=== PATIENT | female | born 1965 ===

== ENCOUNTER 2016-11-15 17:29 | Inpatient (IN) | payer MEDICAID ==
[2016-11-15] MEDS ORDERED: Bacitracin 500 Units/gm Oint Foilpak UD ONE (18:53)
[2016-11-15 19:31] LABS: BASO # 0.1 K/uL (0.0-0.2); BASO % 1.2 % (0.0-2.0); EOS # 0.1 K/uL (0.0-0.7); EOS % 0.8 % (0.0-4.0); HEMATOCRIT 42.6 % (34.0-47.0); LYMPH # 3.6 K/uL (1.0-4.3); LYMPH % 30.8 % (20.0-40.0); MEAN CELL VOLUME 90.6 fL (81.0-99.0); MEAN CORPUSCULAR HEMOGLOBIN 30.3 pg (27.0-31.0); MEAN CORPUSCULAR HGB CONC 33.4 g/dL (33.0-37.0); MEAN PLATELET VOLUME 10.4 fL (7.2-11.7); MONO # 0.7 K/uL (0.0-0.8); MONO % 5.8 % (0.0-10.0); RED CELL DISTRIBUTION WIDTH 12.8 % (11.5-14.5); WHITE BLOOD COUNT 11.6 K/uL (4.8-10.8)
[2016-11-15 19:42] LABS: RBC URINE 1 /hpf (0-3); URINE BACTERIA RARE (<OCC); URINE BILIRUBIN NEGATIVE (NEGATIVE); URINE COLOR Yellow (YELLOW); URINE GLUCOSE (UA) NORMAL (Normal); URINE KETONE NEGATIVE (NEGATIVE); URINE LEUKOCYTE ESTERASE NEG Leu/uL (Negative); URINE PROTEIN NEGATIVE (NEGATIVE); URINE UROBILINOGEN NORMAL mg/dL (0.2-1.0); WBC URINE 2 /hpf (0-5)
[2016-11-15 19:44] LABS: ALB/GLOB RATIO 1.4 (1.0-2.1); ALCOHOL SERUM < 10 mg/dl (0-10); ALKALINE PHOSPHATASE 73 U/L (38-126); ALT/SGPT 31 U/L (9-52); AST/SGOT 16 U/L (14-36); BILIRUBIN,TOTAL 0.5 mg/dL (0.2-1.3); BLOOD UREA NITROGEN 8 mg/dL (7-17); CALCIUM 9.2 mg/dl (8.6-10.4); CARBON DIOXIDE 24 mmol/L (22-30); CHLORIDE 104 mmol/L (98-107); GFR AFRICAN-AMERICAN > 60; GLUCOSE,RANDOM 87 mg/dL (65-105); POTASSIUM 3.3 mmol/L (3.6-5.2); SODIUM 140 mmol/L (132-148); TOTAL PROTEIN 6.7 g/dL (6.3-8.3)
[2016-11-15 19:46] LABS: URINE BLOOD TRACE-INTACT (NEGATIVE)
--- NOTE | 2016-11-15 20:31 | C.PDOC ---
History Of Present Illness 51 year old female with a Hx of bipolar disorder brought in by family for bizarre cutting behavior. Family states patient cut herself multiple times on the bilateral forearms with a razor. Patient is currently on trazodone, seroquel , and klonopin; denies physical complaints at this time. Time Seen by Provider: 11/15/16 18:37 Chief Complaint (Nursing): Psychiatric Evaluation History Per: Patient History/Exam Limitations: no limitations Onset/Duration Of Symptoms: Days Current Symptoms Are (Timing): Still Present Suicide/Self Injury Attempted (Context): Other (Cut forearms) Involuntary Hold By: None Recent travel outside of the [place]: No Past Medical History Reviewed: Historical Data, Nursing Documentation, Vital Signs Vital Signs: Last Vital Signs Temp 97.7 F 11/15/16 20:51 Pulse 80 11/15/16 20:51 Resp 18 11/15/16 21:48 BP 118/80 11/15/16 20:51 Pulse Ox 98 11/15/16 22:08 - Medical History PMH: Bipolar Disorder, Depression, Diabetes Surgical History: No Surg Hx Family History: States: Unknown Family Hx - Social History Hx Alcohol Use: No Hx Substance Use: No Review Of Systems Skin: Positive for: Other (Cuts to bilateral forearms) Neurological: Negative for: Weakness, Numbness Physical Exam - Physical Exam Appears: Non-toxic, No Acute Distress Skin: Warm, Dry, Other (10-15 6cm lacerations to bilateral ventral forearms. No tendon or artery injury.) Head: Atraumatic, Normacephalic Oral Mucosa: Moist Chest: Symmetrical, No Tenderness Cardiovascular: Rhythm Regular, No Murmur Respiratory: Normal Breath Sounds, No Accessory Muscle Use, No Wheezing Extremity: Normal ROM (x4) Neurological/Psych: Oriented x3, Normal Speech, Normal Cognition, Normal Motor, Normal Sensation, Other (Normal function of bilateral hands) ED Course And Treatment - Laboratory Results Result Diagrams: 11/15/16 19:27 11/15/16 19:27 O2 Sat by Pulse Oximetry: 98 (Room air) Pulse Ox Interpretation: Normal Progress Note: Blood work and urinalysis ordered. Patient's wounds were evaluated and cleaned; bacitracin was applied and wounds were dressed. Crisis notified and patient will be admitted under Dr. Azul. Disposition Doctor Will See Patient In The: Hospital Counseled Patient/Family Regarding: Studies Performed, Diagnosis - Disposition Disposition: HOSPITALIZED Disposition Time: 20:30 Condition: GOOD - Clinical Impression Clinical Impression: Schizophrenia, Bipolar 1 disorder, Deliberate self-cutting - Scribe Statement The provider has reviewed the documentation as recorded by the Donteibsusanna Contreras All medical record entries made by the Donteibsusanna were at my direction and personally dictated by me. I have reviewed the chart and agree that the record accurately reflects my personal performance of the history, physical exam, medical decision making, and the department course for this patient. I have also personally directed, reviewed, and agree with the discharge instructions and disposition.
[2016-11-15] MEDS ORDERED: Potassium Chloride 20 mEq ER Tab PO STA (20:50)
--- NOTE | 2016-11-15 22:02 | PCM.BM ---
<BoboCindy perkins - Last Filed: 11/15/16 22:01> Treatment Plan Problems - Problems identified on initial assessmt Auditory Hallucinations Date Initiated: 11/15/16 Time Initiated: 22:01 Assessment reference: NA Status: Active Comment: cut AIDAN arms with razor/superficial cuts Treatment assets and liabiliti Patient Assests: adapts well, cooperative, self-reliant, ADL independent Patient Liabilities: poor support system, medical problems - Milieu Protocol Maintain good personal hygiene: daily Encourage regular showers, daily Remind patient to perform daily oral care Conduct patient checks and document Observation sheet: Q15 minutes Maintain personal safety: every shift Educate patient to report safety concerns to staff, every shift Monitor environment for contraband/sharps Medication safety: Monitor for expected outcome, potential side effects: every shift, Assess barriers to learning: every shift, Assess readiness for medication education: every shift <Cathleen Mchugh - Last Filed: 11/16/16 11:00> Family Contact Family involvement: Famliy/SO not involved - Goals for Treatment Patient goals for treatment: "I want to stop hearing voices." Discharge/Continuing Care - Education Needs Education Needs: Patient Medication, Patient Coping Skills - Discharge Discharge Criteria: Tolerates medication w/o severe side effects, Reduction of target symptoms Discharge to:: Home - Treatment Team Participation Discussed with Family/SO: No Was Patient/Family/SO present at Treatment Team Meeting: Yes <Yuri Chavira - Last Filed: 11/16/16 16:54> - Diagnosis (1) Bipolar 1 disorder Status: Acute Interventions: 11/16/16 16:54 * Assess/adjust medications daily and /or as needed * See patient on an individual basis 7x/week to assess symptoms of depression * Monitor for side effects & effectiveness of medications *
--- NOTE | 2016-11-16 14:08 | PCM.PSYCH ---
Initial Psychiatric Evaluation - Initial Psychiatric Evaluation Type of Admission: Voluntary Legal Status: Capacity Chief Complaint (in patient's own words): "I'm doing very bad" History of Present Illness and Precipitating Events: Patient is a 51 year old female, unemployed and currently on welfare, living alone in [place], who came to the [facility] from [place] on August 18 of this year. Patient states that her family lives in [place]. Patient is [place]-speaking and history is obtained with [place]-speaking pediatric social worker. Patient has a reported history of bipolar disorder and depression, for which she was treated in [place]. Patient states that she feels depressed and has suicidal thoughts, and tried to kill herself in the past but wasn't successful. She says that she hears voices that call her name and say that she shouldn't live anymore. She says that she came to the [facility] because a nitrogen operator in [place] told her that she would get better mental health care here, however she feels that it is worse than what she was receiving in [place]. She is stressed because she lives in low income housing, and is being pressured to provide documents from [place] that she states she has already provided. She also expresses worry that she is unable to sleep at night, and fears that one day her mind will go "blank " and she will follow through on her thoughts of committing suicide. Patient was prescribed Trazadone, Seroquel and Klonopin in [place]. She has seen a psychiatrist at the [facility] once and was also seen at another crisis center [place] the [place]. Patient denies substance or alcohol use. Past psychiatric history: bipolar disorder depression Drugs: denies ETOH: denies Tobacco: smokes cigarettes Past medical history: DM asthma "back problems" neuropathy Medications: Trazadone Klonopin Seroquel Family history: Uncle committed suicide Social history: Lives alone in [place] in low-income housing Originally from [place], came [place] the [place] on [place] Unemployed, currently on welfare Current Medications: Active Medications Generic Name Dose Route Start Last Admin Trade Name Freq PRN Reason Stop Dose Admin Albuterol 1 puff 11/16/16 10:52 Ventolin Hfa 90 Mcg/Actuation (8 G) INH RQ4 PRN SOB Escitalopram Oxalate 10 mg 11/16/16 11:00 Lexapro PO DAILY SILVIA Gabapentin 300 mg 11/16/16 11:00 Neurontin PO BID SILVIA Glipizide 5 mg 11/17/16 07:30 Glucotrol PO ACB SILVIA Hydroxyzine HCl 50 mg 11/16/16 14:00 Atarax PO QID SILVIA Metformin HCl 850 mg 11/16/16 10:00 11/16/16 10:28 Glucophage PO 850 mg BID SILVIA Administration Nicotine 1 patch 11/16/16 10:00 11/16/16 10:28 Nicoderm Cq TD 1 patch DAILY SILVIA Administration Quetiapine Fumarate 200 mg 11/15/16 22:00 11/15/16 21:34 Seroquel PO 200 mg HS SILVIA Administration Quetiapine Fumarate 100 mg 11/16/16 11:00 Seroquel PO DAILY SILVIA Tramadol HCl 25 mg 11/16/16 10:59 Ultram PO Q8H PRN Pain, severe (8-10) Trazodone HCl 100 mg 11/15/16 22:00 11/15/16 21:34 Desyrel PO 100 mg HS SILVIA Administration Past Psychiatric History - Past Psychiatric History Pertinent Medical Hx (Current Medical&Sleep Prob, Allergies): Allergies Allergy/AdvReac Type Severity Reaction Status Date / Time No Known Allergies Allergy Unverified 11/15/16 17:48 Celebrex 11/15/16 Clonazepam 11/15/16 Hydroxyzine HCl 11/15/16 Lamotrigine 11/15/16 MetFORMIN 11/15/16 Review of Systems - Neurological Neurological: UNREMARKABLE - Psychiatric Psychiatric: Abnormal Sleep Pattern, Anxiety, Auditory Hallucinations, Depression, Suicidal Ideation Mental Status Examination - Personal Presentation Personal Presentation: Looks stated age - Affect Affect: Constricted, Depressed - Motor Activity Motor Activity: Calm - Reliability in Providing Information Reliability in Providing Information: Fair - Speech Speech: Organized - Mood Mood: Depressed, Anxious - Formal Thought Process Formal Thought Process: Hallucinations - Hallucinations/Delusions Hallucinations: Auditory - Cognitive Functions Orientation: Person, Place, Situation, Time Sensorium: Alert Attention/Concentration: Attentive Abstract Thinking: Imbler Estimate of Intelligence: Average Judgement: Intact, as evidence by: Insight regarding need for hospitalization Memory: Recent intact, as evidence by: Ability to recall events of the day, Remote intact, as evidenced by: Abilit to recall sig. life events - Risk Risk: Suicidal, Self-mutilation - Strength & Assets Inventory Strength & Assets Inventory: Cooperative - Limitations Limitations: Living alone DSM 5 DX - DSM 5 DSM 5 Diagnosis: r/o bipolar disorder with psychotic features r/o major depressive disorder with psychotic features r/o schizoaffective disorder - Recommended/Plan of Treatment Treatment Recommendations and Plan of Treatment: Start lexapro and gabapentin Increase seroquel Attend groups and activities Individual therapy Psychoeducation and support Encourage compliance with meds and after care Refer to outpatient program Teach healthy lifestyle methods, i.e. diet, exercise, meditation Smoking cessation 33 min Projected ELOS: 6-7 days Prognosis: good with treatment Discharge Plan and Discharge Criteria: no symptoms of severe depression or severe psychotic features - Smoking Cessation Smoking Cessation Initiated: Yes
[2016-11-16 14:26] LABS: BLOOD UREA NITROGEN 9 mg/dL (7-17); CALCIUM 9.7 mg/dl (8.6-10.4); CARBON DIOXIDE 27 mmol/L (22-30); CHLORIDE 101 mmol/L (98-107); GFR AFRICAN-AMERICAN > 60; GLUCOSE,RANDOM 148 mg/dL (65-105); SODIUM 140 mmol/L (132-148)
[2016-11-16 14:53] LABS: THYROID STIMULATING HORMONE 0.48 mIU/L (0.46-4.68)
[2016-11-16] MEDS: Tramadol 25 mg PO PRN (19:28)
[2016-11-17] MEDS: Tramadol 25 mg PO PRN (11:22)
[2016-11-17] MEDS: Albuterol HFA 90 mcg/actuation (8 g) INH PRN (11:23)
--- NOTE | 2016-11-17 14:13 | PCM.PYCHPN ---
Psychiatric Progress Note - Psychiatric Progress Note Patient seen today, length of contact: 15 minutes Patient Chief Complaint: "I'm a little better than yesterday" Problems Identified/Issues Discussed: The patient was seen, chart reviewed, case discussed with staff. The patient is compliant with medications and reports no side effects. Patient states she is doing better than yesterday but reports that she still hasn't been able to sleep and requests a medication change. She states that she is depressed and has been having suicidal thoughts. She also expresses worry about what she did to her arms by cutting them. She remains concerned about her housing situation and requests a letter stating that she needs housing. Symptoms are improving but patient needs more time to stabilize. After care discussed, support and psychoeducation given. DSM 5 Symptoms Update: Major Depression, recurrent, severe with psychotic features AURELIO Medication Change: Yes (Seroquel increased to 300mg PO HS; added ambien 5mg PO HS) Medical Record Reviewed: Yes Mental Status Examination - Cognitive Function Orientation: Person, Place, Situation, Time Memory: Intact Attention: WNL Concentration: Poor Association: WNL Fund of Knowledge: WNL - Mood Mood: Depressed, Anxious - Affect Affect: Constricted, Depressed - Speech Speech: Appropriate - Formal Thought Process Formal Thought Process: Hallucinations - Suicidal Ideation Suicidal Ideation: Yes - Homicidal Ideation Homicidal Ideation: No Goal/Treatment Plan - Goal/Treatment Plan Need for Continued Stay: Severe depression anxiety, Discharge may exacerbated symptoms Progress Toward Problem(s) and Goals/Treatment Plan: Lexapro and gabapentin Increase seroquel Add Ambien Attend groups and activities Individual therapy Psychoeducation and support Encourage compliance with meds and after care Refer to outpatient program Teach healthy lifestyle methods, i.e. diet, exercise, meditation Smoking cessation
[2016-11-18] MEDS: Tramadol 25 mg PO PRN (12:14)
--- NOTE | 2016-11-18 13:00 | CP.PCM.CON ---
History of Present Illness - History of Present Illness History of Present Illness: Gen Sx: Dr Wesley Pt is a 51F brought in 2 days ago through ED by family after pt cut herself bilaterally on both forearms with a razor. Currently pt is admitted to 5E psychiatric unit. She is resting comfortably, both arms bandaged with Tefla and Kerlex. Pt states pain is minimal, just very itchy. There has been no bleeding since ER. Pt was not given Tetanus booster in the ED. Pt states it has been > 10 years since last booster. Review of Systems - Review of Systems All systems: reviewed and no additional remarkable complaints except (as per hpi ) Past Patient History - Past Social History Smoking Status: Heavy Smoker > 10 Cigarettes Daily - CARDIAC Hx Hypertension: No - PULMONARY Hx Emphysema: Yes Hx Tuberculosis: No - NEUROLOGICAL Hx Seizures: No - ENDOCRINE/METABOLIC Hx Diabetes Mellitus Type 2: Yes - HEMATOLOGICAL/ONCOLOGICAL Hx Human Immunodeficiency Virus (HIV): No - MUSCULOSKELETAL/RHEUMATOLOGICAL Hx Herniated Disk: Yes - GENITOURINARY/GYNECOLOGICAL Hx Sexually Transmitted Disorders: No - PSYCHIATRIC Hx Substance Use: No - ANESTHESIA Hx Anesthesia: No Meds Allergies/Adverse Reactions: Allergies Allergy/AdvReac Type Severity Reaction Status Date / Time No Known Allergies Allergy Unverified 11/15/16 17:48 - Medications Medications: Current Medications Albuterol (Ventolin Hfa 90 Mcg/Actuation (8 G)) 1 puff INH RQ4 PRN PRN Reason: SOB Last Admin: 11/17/16 11:23 Dose: 1 puff Bacitracin (Bacitracin) 1 ea TOP ONCE ONE Stop: 11/18/16 12:57 Escitalopram Oxalate (Lexapro) 10 mg PO DAILY SILVIA Last Admin: 11/18/16 09:47 Dose: 10 mg Gabapentin (Neurontin) 300 mg PO BID SILVIA Last Admin: 11/18/16 09:47 Dose: 300 mg Glipizide (Glucotrol) 5 mg PO ACB SILVIA Last Admin: 11/18/16 09:47 Dose: 5 mg Hydroxyzine HCl (Atarax) 50 mg PO Q6H PRN PRN Reason: Anxiety Last Admin: 11/17/16 17:32 Dose: 50 mg Metformin HCl (Glucophage) 850 mg PO BID SILVIA Last Admin: 11/18/16 09:47 Dose: 850 mg Nicotine (Nicoderm Cq) 1 patch TD DAILY [facility] Last Admin: 11/18/16 09:47 Dose: 1 patch Quetiapine Fumarate (Seroquel) 100 mg PO DAILY [facility] Last Admin: 11/18/16 09:47 Dose: 100 mg Quetiapine Fumarate (Seroquel) 300 mg PO HS [facility] Last Admin: 11/17/16 21:06 Dose: 300 mg Tetanus/Reduced Diphtheria/Acell Pertussis (Adacel) 0.5 ml IM .ONCE ONE Stop: 11/18/16 12:55 Tramadol HCl (Ultram) 25 mg PO Q8H PRN PRN Reason: Pain, severe (8-10) Last Admin: 11/18/16 12:14 Dose: 25 mg Trazodone HCl (Desyrel) 100 mg PO [facility] Last Admin: 11/17/16 21:08 Dose: 100 mg Zolpidem Tartrate (Ambien) 5 mg PO HS [facility] Last Admin: 11/17/16 21:28 Dose: 5 mg Physical Exam - Constitutional Appears: Non-toxic, No Acute Distress - Respiratory Exam Respiratory Exam: absent: Respiratory Distress - Extremities Exam Additional comments: bilateral numerous superficial incisions on forearm, no erythema, no purulent drainage. All incisions inspected and none penetrate past the sub-cutaneous fat. There is no vascular or fascial damage. Results - Vital Signs Recent Vital Signs: Last Vital Signs Temp 98.4 F 11/18/16 07:38 Pulse 85 11/18/16 07:38 Resp 20 11/18/16 07:38 BP 107/77 11/18/16 12:27 Pulse Ox 98 11/15/16 22:08 - Labs Result Diagrams: 11/15/16 19:27 11/16/16 13:52 Labs: Laboratory Results - last 24 hr 11/18/16 07:48 POC Glucose (mg/dL) 165 H Assessment & Plan - Assessment and Plan (Free Text) Assessment: 51F with multiple bilateral superficial forearms cuts Plan: no need for surgical intervention or stitches apply bacitracin to wounds daily, keep clean Tdap booster ordered - IM - can be given on 5E floor please reconsult if necessary d/w Dr Lupillo Caldwell, PGY3
[2016-11-18] MEDS ORDERED: Bacitracin 500 Units/gm Oint Foilpak UD TOP ONE (13:15)
--- NOTE | 2016-11-18 14:44 | PCM.PYCHPN ---
Psychiatric Progress Note - Psychiatric Progress Note Patient seen today, length of contact: 15 minutes Patient Chief Complaint: "I'm depressed" Problems Identified/Issues Discussed: The patient was seen, chart reviewed, case discussed with staff. The patient is compliant with medications and reports no side effects. Patient states that she is still depressed and slept a little better than she did yesterday. She had suicidal thoughts yesterday but not today. She is feeling anxious and expresses worry about the cuts on her arms. Discussed with patient that another doctor would be called to evaluate the cuts on her arms. Symptoms are improving but patient needs more time to stabilize. After care discussed, support and psychoeducation given. Medication Change: No Medical Record Reviewed: Yes Mental Status Examination - Cognitive Function Orientation: Person, Place, Situation, Time Memory: Intact Attention: WNL Concentration: Poor Association: WNL Fund of Knowledge: WNL - Mood Mood: Depressed, Anxious - Affect Affect: Constricted, Depressed - Speech Speech: Appropriate - Formal Thought Process Formal Thought Process: Hallucinations - Suicidal Ideation Suicidal Ideation: No - Homicidal Ideation Homicidal Ideation: No Goal/Treatment Plan - Goal/Treatment Plan Need for Continued Stay: Severe depression anxiety, Discharge may exacerbated symptoms Progress Toward Problem(s) and Goals/Treatment Plan: Lexapro and gabapentin Seroquel Shariien Attend groups and activities Individual therapy Psychoeducation and support Encourage compliance with meds and after care Refer to outpatient program Teach healthy lifestyle methods, i.e. diet, exercise, meditation Smoking cessation
[2016-11-19] MEDS: Bacitracin Ointment 30 GM TUBE TOP SCH (10:30)
--- NOTE | 2016-11-19 11:22 | PCM.PYCHPN ---
Psychiatric Progress Note - Psychiatric Progress Note Patient seen today, length of contact: 15 minutes Patient Chief Complaint: "I'm doing badly" Problems Identified/Issues Discussed: The patient was seen, chart reviewed, case discussed with staff. The patient is compliant with medications and reports no side effects. Patient is tearful at times and states she feels very anxious because she [place] this country alone and has nobody to help her. She says that her one friend is a asphalt roller person but she lives in [place] and can't come during the visiting hours of 7- 8pm. Discussed with patient that there is a tack maker at the hospital who can come speak to her. Patient reports that her heart is racing and she has cold sweats, and requests Ativan. Discussed with patient that medications like Ativan and Klonopin are addicting, and are meant for severe cases of anxiety and should be taken rarely. She expresses understanding of why she is being treated with other medications instead. Patient states that she does not wish to take Seroquel in the morning because she doesn't want to be drowsy during the day, but is having trouble sleeping for a full night (reports sleeping from 10pm to 4am last night) . Patient needs more time to stabilize. After care discussed, support and psychoeducation given. Medication Change: Yes (inc. Neurontin to 300mg PO TID; d/c AM Seroquel; inc. Lexapro to 15mg ) Medical Record Reviewed: Yes Mental Status Examination - Cognitive Function Orientation: Person, Place, Situation, Time Memory: Intact Attention: WNL Concentration: Poor Association: WNL Fund of Knowledge: WNL - Mood Mood: Depressed, Anxious - Affect Affect: Constricted, Depressed - Speech Speech: Appropriate - Formal Thought Process Formal Thought Process: Hallucinations - Suicidal Ideation Suicidal Ideation: No - Homicidal Ideation Homicidal Ideation: No Goal/Treatment Plan - Goal/Treatment Plan Need for Continued Stay: Severe depression anxiety, Discharge may exacerbated symptoms Progress Toward Problem(s) and Goals/Treatment Plan: Lexapro and gabapentin Seroquel Ambien Attend groups and activities Individual therapy Psychoeducation and support Encourage compliance with meds and after care Refer to outpatient program Teach healthy lifestyle methods, i.e. diet, exercise, meditation Smoking cessation
[2016-11-20] MEDS: Bacitracin Ointment 30 GM TUBE TOP SCH (09:25)
--- NOTE | 2016-11-20 11:39 | PCM.PYCHPN ---
Psychiatric Progress Note - Psychiatric Progress Note Patient seen today, length of contact: 15 minutes Patient Chief Complaint: "I was very anxious" Problems Identified/Issues Discussed: The patient was seen, chart reviewed, case discussed with staff. She had 145 pulse last night, likely benzo wdw She is anxious too. Ativan taper started No severe sxs and no SI, no seizures Today, she is calmer Support and psychoed given Risks of benzos explained but to no avail Medication Change: Yes (ativan taper, dc trazodone, decrease gabapentin) Medical Record Reviewed: Yes Mental Status Examination - Cognitive Function Orientation: Person, Place, Situation, Time Memory: Intact Attention: WNL Concentration: Poor Association: WNL Fund of Knowledge: WNL - Mood Mood: Depressed, Anxious - Affect Affect: Constricted, Depressed - Speech Speech: Appropriate - Formal Thought Process Formal Thought Process: Hallucinations - Suicidal Ideation Suicidal Ideation: No - Homicidal Ideation Homicidal Ideation: No Goal/Treatment Plan - Goal/Treatment Plan Need for Continued Stay: Severe depression anxiety, Discharge may exacerbated symptoms Progress Toward Problem(s) and Goals/Treatment Plan: Lexapro and gabapentin Seroquel Ambien prn Ativan taper over 4 days Attend groups and activities Individual therapy Psychoeducation and support Encourage compliance with meds and after care Refer to outpatient program Teach healthy lifestyle methods, i.e. diet, exercise, meditation Smoking cessation
[2016-11-20] MEDS: Tramadol 25 mg PO PRN (12:02)
[2016-11-21] MEDS: Bacitracin Ointment 30 GM TUBE TOP SCH (09:28)
--- NOTE | 2016-11-21 17:20 | PCM.PYCHPN ---
Psychiatric Progress Note - Psychiatric Progress Note Patient seen today, length of contact: 15 minutes Patient Chief Complaint: I'm feeling much better Problems Identified/Issues Discussed: Patient seen. Chart reviewed. Case discussed with the staff. Issues related to illness and treatment were discussed with the patient. Reported compliant with treatment with no adverse affects. Tolerating treatment very well. Patient was evaluated with the help of a Azeri speaking staff member. Reported feeling much better. Better sleep and mood. At the time of evaluation, patient was awake alert oriented 3, had no delusions , no auditory or visual hallucinations, no suicidal ideations or homicidal ideations. Medical Problems: None reported Diagnostic Results: Reviewed DSM 5 Symptoms Update: Improving Medication Change: No Medical Record Reviewed: Yes Consults ordered or reviewed: Reviewed Mental Status Examination - Cognitive Function Orientation: Person, Place, Situation, Time Memory: Intact Attention: WNL Concentration: WNL Association: WN Fund of Knowledge: [facility] Decription of patient's judgement and insights: Fair - Mood Mood: Depressed (Much less than before) - Affect Affect: Depressed - Speech Speech: Appropriate - Formal Thought Process Formal Thought Process: No Impairment Psychotic Thoughts and Behaviors: None - Suicidal Ideation Suicidal Ideation: No - Homicidal Ideation Homicidal Ideation: No Goal/Treatment Plan - Goal/Treatment Plan Need for Continued Stay: Remain at risks for inpatient hospitalization, Discharge may exacerbated symptoms, Severe functional impairment Progress Toward Problem(s) and Goals/Treatment Plan: Improvement with treatment Patient education Supportive therapy Continue treatment as before Patient will go to [facility] for follow-up care after discharge from the hospital. Estimated Date of D/C: 11/23/16 - Smoking Cessation Smoking Cessation Initiated: Yes
[2016-11-21] MEDS: Tramadol 25 mg PO PRN (18:18)
[2016-11-21] MEDS: Albuterol HFA 90 mcg/actuation (8 g) INH PRN (18:22)
[2016-11-22] MEDS: Bacitracin Ointment 30 GM TUBE TOP SCH (09:16)
[2016-11-22 15:47] VITALS: O2SAT 98
--- NOTE | 2016-11-22 21:30 | PCM.PYCHPN ---
Psychiatric Progress Note - Psychiatric Progress Note Patient seen today, length of contact: 15 minutes Patient Chief Complaint: I am feeling nervous because of discharge tomorrow Problems Identified/Issues Discussed: Patient seen. Chart reviewed. Case discussed with the staff. Issues related to illness and treatment were discussed with the patient. Reported compliant with treatment with no adverse affects. Tolerating treatment very well. Patient was evaluated with the help of a Greek speaking staff member. Reported feeling nervous because of discharge issues, wants to stay in the hospital for a few more days At the time of evaluation, patient was awake alert oriented 3, had no delusions , no auditory or visual hallucinations, no suicidal ideations or homicidal ideations. Medical Problems: None reported Diagnostic Results: Reviewed DSM 5 Symptoms Update: Improving with treatment Medication Change: No Medical Record Reviewed: Yes Consults ordered or reviewed: Reviewed Mental Status Examination - Cognitive Function Orientation: Person, Place, Situation, Time Memory: Intact Attention: WNL Concentration: WNL Association: WN Fund of Knowledge: [facility] Decription of patient's judgement and insights: Fair - Mood Mood: Anxious - Affect Affect: Other (Appropriate) - Speech Speech: Appropriate - Formal Thought Process Formal Thought Process: No Impairment Psychotic Thoughts and Behaviors: None - Suicidal Ideation Suicidal Ideation: No - Homicidal Ideation Homicidal Ideation: No Goal/Treatment Plan - Goal/Treatment Plan Need for Continued Stay: Remain at risks for inpatient hospitalization, Discharge may exacerbated symptoms, Severe functional impairment Progress Toward Problem(s) and Goals/Treatment Plan: Improvement with treatment Patient education Supportive therapy Continue treatment as before Patient will go to [facility] (formerly [facility]), for follow-up care after discharge from the hospital. Estimated Date of D/C: 11/23/16 - Smoking Cessation Smoking Cessation Initiated: Yes
[2016-11-22] MEDS: Tramadol 25 mg PO PRN (21:45)
[2016-11-23] MEDS: Bacitracin Ointment 30 GM TUBE TOP SCH (09:46)
--- NOTE | 2016-11-23 10:19 | PCM.BM ---
<Sushila Mchughy - Last Filed: 11/23/16 10:18> Treatment Plan Problems - Problems identified on initial assessmt Auditory Hallucinations Date Initiated: 11/15/16 Time Initiated: 22:01 Assessment reference: NA Status: Active Comment: cut AIDAN arms with razor/superficial cuts Treatment assets and liabiliti Patient Assests: adapts well, cooperative, self-reliant, ADL independent Patient Liabilities: poor support system, medical problems - Milieu Protocol Maintain good personal hygiene: daily Encourage regular showers, daily Remind patient to perform daily oral care Conduct patient checks and document Observation sheet: Q15 minutes Maintain personal safety: every shift Educate patient to report safety concerns to staff, every shift Monitor environment for contraband/sharps Medication safety: Monitor for expected outcome, potential side effects: every shift, Assess barriers to learning: every shift, Assess readiness for medication education: every shift Milieu Narrative: Improvement with treatment Patient education Supportive therapy Continue treatment as before Patient will go to [facility], for follow-up care after discharge from the hospital. Family Contact Family involvement: Famliy/SO not involved - Goals for Treatment Patient goals for treatment: "I want to stop hearing voices." Discharge/Continuing Care - Education Needs Education Needs: Patient Medication, Patient Coping Skills - Discharge Discharge Criteria: Tolerates medication w/o severe side effects, Reduction of target symptoms Discharge to:: Home - Treatment Team Participation Patient/Family/SO Statement: Improvement with treatment Patient education Supportive therapy Continue treatment as before Patient will go to [facility], for follow-up care after discharge from the hospital. Discussed with Family/SO: No Was Patient/Family/SO present at Treatment Team Meeting: Yes Treatment Plan Review Patient participation: Yes Family/SO/Caregiver participation: No - Problem Auditory Hallucinations Date Initiated: 11/23/16 Time Initiated: 10:18 Progress toward outcomes: improved - Discharge / Continuing Care Discharge to:: Home Behavioral Health Services: Outpatient therapy Health Needs: Medications/Rx <Millicent Sorto - Last Filed: 11/24/16 07:49> Treatment assets and liabiliti Patient Assests: negotiates basic needs <Yuri Chavira - Last Filed: 11/24/16 13:06> - Diagnosis (1) Bipolar 1 disorder Status: Acute Interventions: 11/24/16 13:05 * Assess/adjust medications daily and /or as needed * See patient on an individual basis 7x/week to assess symptoms of depression * Monitor for side effects & effectiveness of medications * * Assess/adjust medications daily and /or as needed * See patient on an individual basis 7x/week to assess level of manic behaviors and stability * Discuss risks, benefits, side effects and alternatives of medications *
--- NOTE | 2016-11-23 15:29 | PCM.PYCHPN ---
Psychiatric Progress Note - Psychiatric Progress Note Patient seen today, length of contact: 15 minutes Patient Chief Complaint: "I didn't sleep last night" Problems Identified/Issues Discussed: Pt is seen, chart reviewed, case discussed with staff. Pt evaluated with the help of Swedish speaking staff member. Pt currently reports of insomnia, vomiting, diarrhea, anxiety and sweating. Klonopin low dose started Inderal increased Labs ordered Pt denies hallucinations, delusions, SI and HI. Symptoms are improving but pt needs more time to stabilize. Pt is compliant with medications and reports no side effects. Support and psychoeducation given, CBT and ME used briefly. After care discussed. She will go to [facility] Medication Change: Yes (Start Klonopin, stop Ativan) Medical Record Reviewed: Yes Mental Status Examination - Cognitive Function Orientation: Person, Place, Situation, Time Memory: Intact Attention: WNL Concentration: WNL Association: WNL Fund of Knowledge: WNL - Mood Mood: Anxious - Affect Affect: Other (Appropriate) - Speech Speech: Appropriate - Formal Thought Process Formal Thought Process: No Impairment - Suicidal Ideation Suicidal Ideation: No - Homicidal Ideation Homicidal Ideation: No Goal/Treatment Plan - Goal/Treatment Plan Need for Continued Stay: Remain at risks for inpatient hospitalization, Discharge may exacerbated symptoms Progress Toward Problem(s) and Goals/Treatment Plan: Major depressive disorder, recurrent, severe with psychotic features Support and psychoeducation daily Attend groups and activities daily Start Klonopin 0.5 mg PO BID today Stop Ativan 1 mg PO BID SILVIA today Continue medications as prescribed Hysqyadc-gubnstnq-dmbtgxtjvh withdrawal Support and psychoeducation given Continue medications as prescribed Estimated Date of D/C: 11/25/16 (Pt needs more time to stabilize) - Smoking Cessation Smoking Cessation Initiated: No
[2016-11-23 17:11] LABS: FREE T4 1.36 ng/dL (0.78-2.19)
[2016-11-23 17:25] LABS: THYROID STIMULATING HORMONE 0.8 mIU/L (0.46-4.68)
[2016-11-23] MEDS: Tramadol 25 mg PO PRN (17:25)
--- NOTE | 2016-11-23 21:57 | CARD ---
APPROVED REPORT EKG Measurement Heart [id number] MI [id number] <Conclusion> Sinus tachycardia Otherwise normal ECG
[2016-11-24 07:43] VITALS: TEMP 98.1
[2016-11-24] MEDS: Bacitracin Ointment 30 GM TUBE TOP SCH (09:30)
--- NOTE | 2016-11-24 14:49 | PCM.PYCHPN ---
Psychiatric Progress Note - Psychiatric Progress Note Patient seen today, length of contact: 16 min Patient Chief Complaint: "I still don't feel well" Problems Identified/Issues Discussed: Pt is seen, chart reviewed, case discussed with staff. Pt is compliant with medications. However, she reports that after her medications were changed yesterday she began to experience headaches. She continues to complain of sweating, overheating, nausea and insomnia. 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 She denies hallucinations, delusions and SI. She needs more time to stabilize. Support and psychoeducation given, CBT and AK used briefly. After care discussed. She will follow up with [facility]. Medication Change: Yes (Stop Lexapro and Tramadol, start Remeron) Medical Record Reviewed: Yes Mental Status Examination - Cognitive Function Orientation: Person, Place, Situation, Time Memory: Intact Attention: WNL Concentration: WNL Association: WN Fund of Knowledge: WN - Mood Mood: Anxious - Affect Affect: Broad - Speech Speech: Appropriate - Formal Thought Process Formal Thought Process: No Impairment - Suicidal Ideation Suicidal Ideation: No - Homicidal Ideation Homicidal Ideation: No Goal/Treatment Plan - Goal/Treatment Plan Need for Continued Stay: Remain at risks for inpatient hospitalization, Discharge may exacerbated symptoms Progress Toward Problem(s) and Goals/Treatment Plan: Stop Lexapro and Tramadol due to 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
[2016-11-25] MEDS ORDERED: Tramadol 25 mg PO STA (00:13)
[2016-11-25 07:35] VITALS: RESP 19
[2016-11-25] MEDS: Bacitracin Ointment 30 GM TUBE TOP SCH (09:38)
--- NOTE | 2016-11-25 14:24 | PCM.PYCHPN ---
Psychiatric Progress Note - Psychiatric Progress Note Patient seen today, length of contact: 17 min Patient Chief Complaint: "I don't feel well" Problems Identified/Issues Discussed: Pt is seen, chart reviewed, case discussed with staff. Pt stated that she did not take her "blue pill" (Inderal) because she was concerned that it would lower her blood pressure too much. She is reminded and educated that this medication will not hurt her and is being provided to help her. She is encouraged to remain open-minded about her treatment and progress. Pt continues to experience insomnia and feels "agitated." She is improving but needs more time to stabilize. Support and psychoeducation given, CBT and [place] used briefly. After care discussed. She will follow up with [facility]. Medication Change: Yes (Stop Tramadol) Medical Record Reviewed: Yes Mental Status Examination - Cognitive Function Orientation: Person, Place, Situation, Time Memory: Intact Attention: WNL Concentration: WNL Association: WNL Fund of Knowledge: WNL - Mood Mood: Anxious - Affect Affect: Broad - Speech Speech: Appropriate - Formal Thought Process Formal Thought Process: No Impairment - Suicidal Ideation Suicidal Ideation: No - Homicidal Ideation Homicidal Ideation: No Goal/Treatment Plan - Goal/Treatment Plan Need for Continued Stay: Remain at risks for inpatient hospitalization, Discharge may exacerbated symptoms Progress Toward Problem(s) and Goals/Treatment Plan: Major depressive disorder, recurrent, severe with psychotic features Support and psychoeducation given Attend groups and activities daily Continue medications as prescribed Knotrado-copugjlb-cylbdsboup use disorder Support and psychoeducation given Attend groups and activities daily Nyhubkzd-ifiprbdc-jharqpswza withdrawal Support and psychoeducation given Continue medications as prescribed Estimated Date of D/C: 11/26/16 (Pt needs more time to stabilize) - Smoking Cessation Smoking Cessation Initiated: No
[2016-11-26 07:54] VITALS: BP 94/73; PULSE 96
--- NOTE | 2016-11-26 09:27 | PCM.PYCHDC ---
Mental Status Examination - Mental Status Examination Orientation: Person, Place, Situation, Time Mood: Anxious Affect: Broad Speech: Appropriate Attention: WNL Concentration: WNL Association: WNL Fund of Knowledge: WNL Formal Thought Process: No Impairment Suicidal Ideation: No Current Homicidal Ideation?: No Discharge Summary - Discharge Note Reason for Hospitalization: Depression with suicidal thoughts and audio hallucinations Laboratory Data: Abnormal Lab Results 11/26/16 07:44 POC Glucose (mg/dL) 221 H Consultations:: List each consultation separately and include: 1. Reason for request. 2. Findings. 3. Follow-up Summary of Hospital Course include:: 1. Description of specific treatment plan utilized for patients during their course of treatmen. 2. Summarize the time- course for resolution of acute symptoms and/or regressed behaviors. 3. Describe issues identified and worked on during hospitalization. 4. Describe medication utilized. 5. Describe medical problems identified and treated. 6. Reassessment of suicide risk Summary of Hospital Course: Pt was admitted and started on treatment with psychotherapy, support, psychoeducation and medications. OK and CBT used. Pt attended groups and activities as well as milieu therapy. All the risks and benefits of medications were discussed and pt understood and agreed. Pt improved with the treatment provided. She slept well and has no complaints. She was tearful and anxious about discharge at bedside but she was assured that she is well and has made a lot of progress. After care discussed. She will return to her home and will be given a letter for social security. - Final Diagnosis (DSM 5) Condition upon Discharge: STABLE DSM 5: Major depressive disorder, recurrent, severe with psychotic features Generalized anxiety disorder Pkwksxhm-mbcgcbuj-pqubqgvqpc use disorder Sfrsouyg-ndnbzwcv-pvrkfvmajw withdrawal Disposition: HOME/ ROUTINE Follow-up Treatment Plan: Continue below medications after discharge. She said she had klonopin at home She asked for a letter given to her for - done Follow after care as discussed. Use relapse prevention skills. Return to ER or call 911 if suicidal, homicidal or symptoms relapse. Stay away from stress, alcohol and drugs. See primary doctor once a year. Prescriptions/Medication Reconciliation: Mirtazapine [Remeron] 15 mg PO HS #30 tab Propranolol [Inderal] 20 mg PO BID #60 tab QUEtiapine [Seroquel] 300 mg PO HS #30 tab - Antipsychotic Medications Pt discharged on 2 or more routine antipsychotic medications: No
[2016-11-26] MEDS: Bacitracin Ointment 30 GM TUBE TOP SCH (09:30)
== END 2016-11-26 11:55 | disposition home or self-care (01) | DRG 430 ==
LOC: C.ER 17:29 → C.9E 20:29 → C.5E 20:41
PROVIDERS: ADMIT Psychiatry & Neurology Psychiatry; ATTEND Psychiatry & Neurology Psychiatry
PROC: GZ3ZZZZ Medication Management (ICD-10-PCS; principal; 2016-11-15)
PROC: GZHZZZZ Group Psychotherapy (ICD-10-PCS; 2016-11-15)
PROC: GZ56ZZZ Individual Psychotherapy, Supportive (ICD-10-PCS; 2016-11-15)
PROC: HZ36ZZZ Individual Counseling for Substance Abuse Treatment, Psychoeducation (ICD-10-PCS; 2016-11-15)
DX: F33.3 Major depressive disorder, recurrent, severe with psychotic symptoms (principal); R45.851 Suicidal ideations; J43.9 Emphysema, unspecified; F13.239 Sedative, hypnotic or anxiolytic dependence with withdrawal, unspecified; F41.1 Generalized anxiety disorder; E11.9 Type 2 diabetes mellitus without complications; J45.909 Unspecified asthma, uncomplicated; F17.210 Nicotine dependence, cigarettes, uncomplicated; S51.812A Laceration without foreign body of left forearm, initial encounter; S51.811A Laceration without foreign body of right forearm, initial encounter; X78.8XXA Intentional self-harm by other sharp object, initial encounter; G47.00 Insomnia, unspecified